=== PATIENT | female | born 1975 | race Caucasian/White ===

== ENCOUNTER 2017-04-18 12:56 | Emergency (ER) | payer MEDICAID ==
[2017-04-18] MEDS: LIDOCAINE 1% (MDV) 20 ML INJ SC (15:06)
[2017-04-18] MEDS: HYDROCODONE/APAP (10/325) TAB PO (15:07)
[2017-04-18] MEDS: ONDANSETRON (ODT) 4 MG TAB ODT (15:07)
[2017-04-18] MEDS: DIPHTH/TET/ACEL PERTUSS (ADULT) 0.5 ML VIAL IM* (15:08)
[2017-04-18] MEDS: CEFAZOLIN 1 GM INJ IM (15:20)
== END 2017-04-18 16:35 | disposition home or self-care (01) ==
LOC: FTE 12:56
DX: S61.012A Laceration without foreign body of left thumb without damage to nail, initial encounter (principal); W26.8XXA Contact with other sharp object(s), not elsewhere classified, initial encounter; Y92.89 Other specified places as the place of occurrence of the external cause; Z23 Encounter for immunization
CPT/HCPCS: 12001; 73140; 90471; 90715; 96372; 99284-25

== ENCOUNTER 2017-04-21 09:02 | Emergency (ER) | payer MEDICAID | END 2017-04-21 11:40 | disposition home or self-care (01) | LOC: FTE 09:02 | DX: Z48.01 Encounter for change or removal of surgical wound dressing (principal) | CPT/HCPCS: 99281; Z7502 ==

== ENCOUNTER 2017-04-27 10:58 | Emergency (ER) | payer MEDICAID | END 2017-04-27 14:00 | disposition home or self-care (01) | LOC: FTE 10:58 | DX: Z48.02 Encounter for removal of sutures (principal) | CPT/HCPCS: 99281; Z7502 ==

== ENCOUNTER 2017-07-23 11:36 | Emergency (ER) | payer MEDICAID ==
[2017-07-23 14:42] LABS: ADD MAN DIFF? NO; BASOPHILS % 0.5 % (0.0-2.0); EOSINOPHILS # 0.1 10^3/ul (0.0-0.5); EOSINOPHILS % 1.5 % (0.0-7.0); HEMOGLOBIN 13.5 g/dl (12.0-16.0); LYMPHOCYTES % 40.9 % (15.0-51.0); MEAN CORPUSCULAR HEMOGLOBIN 29.9 pg (29.0-33.0); MEAN CORPUSCULAR HGB CONC 34.6 g/dl (32.0-37.0); MEAN CORPUSCULAR VOLUME 86.3 fl (82.0-101.0); MEAN PLATELET VOLUME 9.6 fl (7.4-10.4); MONOCYTE # 0.5 10^3/ul (0.3-0.9); MONOCYTES % 7.4 % (0.0-11.0); NEUTROPHIL # 3.6 10^3/ul (1.6-7.5); NEUTROPHILS % 49.4 % (39.0-77.0); PLATELET COUNT 390 10^3/UL (140-415); RED BLOOD COUNT 4.52 10^6/ul (4.20-5.40); RED CELL DISTRIBUTION WIDTH 12.8 % (11.5-14.5)
[2017-07-23 14:42] LABS: WHITE BLOOD COUNT 7.3 10^3/ul (4.8-10.8)
[2017-07-23] MEDS: ONDANSETRON 4 MG INJ IV (14:47)
[2017-07-23] MEDS: SOD CHLORIDE 0.9% 1,000 ML IV (14:47)
[2017-07-23] MEDS: morphine 4 MG/ML VIAL IV (14:48)
[2017-07-23 14:57] LABS: UR CLARITY CLOUDY (CLEAR); UR COLOR YELLOW (YELLOW); UR SPECIFIC GRAVITY (Dip) 1.015 (1.003-1.030); UR TOTAL PROTEIN (Dip) NEGATIVE (NEGATIVE)
[2017-07-23 14:58] LABS: UR GLUCOSE (Dip) NEGATIVE (NEGATIVE); UR KETONES (Dip) NEGATIVE (NEGATIVE)
[2017-07-23 14:59] LABS: UR BILIRUBIN (Dip) NEGATIVE (NEGATIVE); UR BLOOD (Dip) 2+ mg/dL (NEGATIVE); UR NITRITE (Dip) NEGATIVE (NEGATIVE); UR UROBILINOGEN (Dip) NEGATIVE (NEGATIVE)
[2017-07-23 15:00] LABS: ADD UMIC YES; UR ASCORBIC ACID NEGATIVE (NEGATIVE); UR LEUKOCYTE ESTERASE (Dip) NEGATIVE Leu/ul (NEGATIVE)
[2017-07-23 15:03] LABS: ANION GAP 16 (8-16); BLOOD UREA NITROGEN 12 mg/dl (7-20); CALCIUM 9.2 mg/dl (8.4-10.2); CARBON DIOXIDE 26 mmol/L (21-31); CHLORIDE 109 mmol/L (97-110); CREATININE 0.75 mg/dl (0.44-1.00); GLUCOSE 82 mg/dl (70-220); POTASSIUM 3.6 mmol/L (3.5-5.1); SODIUM 147 mmol/L (135-144)
[2017-07-23 15:09] LABS: UR BACTERIA MODERATE /HPF (NONE SEEN); UR SQUAMOUS EPITHELIAL CELL FEW /HPF (FEW)
[2017-07-23 15:10] LABS: UR AMORPHOUS CRYSTAL MANY /HPF (NONE SEEN)
== END 2017-07-23 17:43 | disposition home or self-care (01) ==
LOC: FTE 11:36
DX: N93.8 Other specified abnormal uterine and vaginal bleeding (principal); N93.9 Abnormal uterine and vaginal bleeding, unspecified; N39.0 Urinary tract infection, site not specified
CPT/HCPCS: 36415; 76830; 76856; 80048; 81001; 81025; 85025; 96374; 96375; 99285-25

== ENCOUNTER 2017-08-01 16:39 | Emergency (ER) | payer MEDICAID ==
[2017-08-01] MEDS: IBUPROFEN 200 MG TAB PO (18:31)
[2017-08-01] MEDS: CIPROFLOXACIN 500 MG TAB PO (18:31)
[2017-08-01] MEDS: PHENAZOPYRIDINE 100 MG TAB PO (18:31)
[2017-08-01 20:38] LABS: ADD UMIC YES; UR ASCORBIC ACID 40 mg/dL (NEGATIVE); UR BILIRUBIN (Dip) NEGATIVE (NEGATIVE); UR BLOOD (Dip) 2+ mg/dL (NEGATIVE); UR CLARITY SLIGHTLY CLOUDY (CLEAR); UR COLOR YELLOW (YELLOW); UR GLUCOSE (Dip) NEGATIVE (NEGATIVE); UR KETONES (Dip) NEGATIVE (NEGATIVE); UR LEUKOCYTE ESTERASE (Dip) NEGATIVE Leu/ul (NEGATIVE); UR MUCUS FEW /HPF (NONE SEEN); UR NITRITE (Dip) NEGATIVE (NEGATIVE); UR RBC 164 /HPF (0-5); UR SPECIFIC GRAVITY (Dip) 1.018 (1.003-1.030); UR SQUAMOUS EPITHELIAL CELL FEW /HPF (FEW); UR TOTAL PROTEIN (Dip) NEGATIVE (NEGATIVE); UR UROBILINOGEN (Dip) NEGATIVE (NEGATIVE); UR WBC 4 /HPF (0-5)
== END 2017-08-01 21:00 | disposition home or self-care (01) ==
LOC: FTE 16:39
DX: N39.0 Urinary tract infection, site not specified (principal); R10.2 Pelvic and perineal pain
CPT/HCPCS: 81001; 84703; 99283

== ENCOUNTER 2017-10-08 07:56 | Emergency (ER) | payer MEDICAID ==
[2017-10-08 08:22] LABS: URINE BLOOD (Dip) POC 1+ (NEGATIVE); URINE GLUCOSE (Dip) POC Negative (NEGATIVE); URINE KETONES (Dip) POC Negative (NEGATIVE); URINE LEUKOCYTE EST (Dip) POC Negative (NEGATIVE); URINE NITRITE (Dip) POC Negative (NEGATIVE); URINE TOTAL PROTEIN POC Negative (NEGATIVE)
[2017-10-08] MEDS: KETOROLAC 30 MG INJ IM (08:30)
== END 2017-10-08 09:12 | disposition home or self-care (01) ==
LOC: FTE 07:56
DX: M25.552 Pain in left hip (principal)
CPT/HCPCS: 73510; 73550; 81003; 81025; 96372; 99284-25